=== PATIENT | female | born 1955 | race Caucasian/White ===

== ENCOUNTER → 2018-07-16 | Outpatient (CLI) | payer OTHER ==
--- NOTE | 2018-07-16 12:11 | RAD ---
EXAM DESCRIPTION: Chest,2 Views CLINICAL HISTORY: ENCOUNTER FOR OTHER PROCEDURAL EXAMINATION COMPARISON: None TECHNIQUE: PA/lateral FINDINGS: There is no acute appearing cardiac or pulmonary abnormality. Heart size is normal with normal pulmonary vascularity. No pleural effusion or pneumothorax. Lungs are clear with no consolidating infiltrate. Lateral view shows intact sternum and T-spine. IMPRESSION: No acute process is identified in the chest. Electronically signed by: Dwayne Hernandez MD 07/16/2018 12:10 PM [facility]
== END ==
LOC: LAB.O 10:09 → MERGE 10:09
PROVIDERS: ATTEND Orthopaedic Surgery
DX: Z01.818 Encounter for other preprocedural examination (principal)

== ENCOUNTER 2018-07-22 05:50 | Inpatient (IN) | payer OTHER ==
--- NOTE | 2018-07-21 11:38 | HP ---
CHIEF COMPLAINT: Left hip pain. HISTORY OF PRESENT ILLNESS: Shital is a 63-year-old female with a history of severe pain in the hip that has been getting progressively worse. The predominance of her pain seems to be located in the groin region. She has had this going on and getting progressively worse for at least two years. Because of the severity of her symptoms as well as the endstage nature of her arthritis , she has requested operative intervention. After discussing the risks, benefits and alternatives to operative therapy, the patient has given informed consent. PAST SURGICAL HISTORY: None. MEDICATIONS: 1. Lisinopril. 2. Hydrochlorothiazide. ALLERGIES: NO KNOWN DRUG ALLERGIES. CODE STATUS: Full code. IMMUNIZATIONS: Up to date. FAMILY HISTORY: None pertinent to today's complaint. SOCIAL HISTORY: The patient does drink a small amount of alcohol, does smoke, but does not use any illicit drugs. REVIEW OF SYSTEMS: Negative except as indicated in the History of Present Illness. PHYSICAL EXAMINATION: VITAL SIGNS: Blood pressure 166/99. Pulse 80. Height 5'2". Weight 148 pounds. MENTAL STATUS: The patient is awake, alert, and is able to give a good history and participate in the physical. The patient is oriented to person, place and time. SKIN: Normal tone and turgor. HEENT: Normocephalic, atraumatic. Pupils equal, round and reactive. Mucosal membranes are moist. NECK: Normal range of motion. No thyromegaly, no lymphadenopathy. CHEST: Normal respiratory excursion. CARDIAC: Regular rate and rhythm. No murmurs, rubs or gallops. MUSCULOSKELETAL: Bilateral upper extremities show warm and well perfused extremities without deformity. Sensation is intact. She has no pain with range of motion. She has no crepitus. The right lower extremity does show some pain with range of motion of the hip. She does have about 30 degrees of internal rotation. She has about 100 degrees of forward flexion. External rotation is to about 40 degrees. The left leg shows 0 degrees of internal rotation of the hip and 15 degrees of external rotation. Any hip flexion causes severe pain. The extremity is warm and well perfused. She has no significant pain with range of motion of the knee. IMAGING: X-rays show what appears to be possible avascular necrosis versus endstage arthritis of the hip. ASSESSMENT: 1. Endstage arthritis. PLAN: The plan at this point is for total hip arthroplasty. We have discussed the risks, benefits, and alternatives to that and the patient has given informed consent. #[id number] [facility]
--- NOTE | 2018-07-21 16:48 | RAD ---
EXAM DESCRIPTION: Hip,Left 2 Views CLINICAL HISTORY: 63 years Female, hip pain COMPARISON: None available. FINDINGS: The visualized bones are well-mineralized. Possible avascular necrosis and collapse of the left femoral head with severe osteoarthritis. There is superior migration of the femur in relation to the acetabulum. IMPRESSION: Possible avascular necrosis and collapse of the left femoral head with severe osteoarthritis. There is superior migration of the femur in relation to the acetabulum. Electronically signed by: Jakub Pat MD 07/21/2018 4:46 PM [facility]
--- NOTE | 2018-07-21 16:49 | RAD ---
EXAM DESCRIPTION: Pelvis CLINICAL HISTORY: 63 years Female, hip pain COMPARISON: None. TECHNIQUE: AP radiograph of the pelvis was performed. FINDINGS: The pelvic ring appears grossly intact on this single AP radiograph. No acute fracture or dislocation. Bilateral sacroiliac joints appear normal. Possible avascular necrosis and collapse of the left femoral head with severe osteoarthritis. There is superior migration of the left femur in relation to the acetabulum. Articular surface collapse of the right femoral head is also noted. IMPRESSION: Single AP radiograph of the pelvis demonstrates grossly intact pelvic ring. Possible avascular necrosis and collapse of the left femoral head with severe osteoarthritis. There is superior migration of the left femur in relation to the acetabulum. Articular surface collapse of the right femoral head is also noted. Electronically signed by: Jakub Pat MD 07/21/2018 4:48 PM [facility]
[2018-07-22] MEDS ORDERED: SODIUM CHL 0.9% 100ML MINI-BAG 100 ML IVPB ONE (05:57)
[2018-07-22] MEDS ORDERED: SODIUM CHLORIDE 0.9% 1000ML 1,000 ML ONE (05:58)
[2018-07-22] MEDS ORDERED: TRANEXAMIC ACID 1,000 MG/10 ML VIAL ONE ×2 (05:58→06:14)
[2018-07-22] MEDS ORDERED: VANCOMYCIN HCL INJ 1,000 MG VIAL IVPB ONE ×2 (05:58→16:19)
[2018-07-22] MEDS ORDERED: ceFAZolin SODIUM 1 GM VIAL ONE ×4 (05:58→20:28)
[2018-07-22] MEDS ORDERED: SODIUM CHLORIDE 0.9% 250ML 250 ML ONE ×2 (05:58→16:19)
[2018-07-22] MEDS ORDERED: SODIUM CHLORIDE 0.9% 100ML 100 ML IVPB ONE ×3 (06:15→20:28)
[2018-07-22] MEDS ORDERED: ACETAMINOPHEN IV 1000MG 100 ML ONE (06:40)
[2018-07-22] MEDS ORDERED: ROCURONIUM BROMIDE 10 MG/ML VIAL ONE (06:41)
[2018-07-22] MEDS ORDERED: fentaNYL CITRATE INJ 50 MCG/ML AMP ONE (06:41)
[2018-07-22] MEDS ORDERED: MORPHINE SULF *EPIDURAL* 1 MG/ML VIAL ONE (06:41)
[2018-07-22] MEDS ORDERED: MIDAZOLAM INJ 2 MG/2 ML VIAL ONE (06:41)
[2018-07-22] MEDS: VANCOMYCIN HCL INJ 1,000 MG VIAL IVPB ONE ×2 (08:08→09:24)
[2018-07-22] MEDS: ceFAZolin SODIUM 1 GM VIAL ONE ×2 (08:08→09:24)
[2018-07-22] MEDS: BUPIVACAINE 0.5% 30 ML VIAL INJ ONE ×2 (08:08→09:30)
[2018-07-22] MEDS: BUPIVACAINE LIPOSOME 13.3 MG/ML VIAL INJ ONE ×2 (08:09→09:30)
[2018-07-22] MEDS ORDERED: ELECTROLYTE-A 1,000 ML IVS ONE ×2 (08:18→09:44)
[2018-07-22] MEDS ORDERED: traMADol HCL 50 MG TAB PO PRN (09:59)
[2018-07-22] MEDS ORDERED: TEMAZEPAM 15 MG CAP PO PRN (09:59)
[2018-07-22] MEDS ORDERED: NALOXONE HCL INJ 0.4 MG/ML VIAL IV PRN (09:59)
[2018-07-22] MEDS ORDERED: DEX 5% W/NACL 0.45% 1000ML 1,000 ML IVS PRN (09:59)
[2018-07-22] MEDS ORDERED: BENZOCAINE-MENTH LOZ (CEPACOL) 1 EA LOZ MT PRN (09:59)
[2018-07-22] MEDS ORDERED: ZOLPIDEM TARTRATE 5 MG TAB PO PRN (09:59)
[2018-07-22] MEDS ORDERED: MORPHINE SULFATE INJ 10 MG/ML VIAL IV PRN (09:59)
[2018-07-22] MEDS ORDERED: SODIUM CHLORIDE 0.9% (FLUSH) 10 ML SYG IV PRN (09:59)
[2018-07-22] MEDS ORDERED: MAGNESIUM HYDROXIDE 30 ML UD PO PRN (09:59)
[2018-07-22] MEDS ORDERED: ACETAMINOPHEN 500 MG TAB PO PRN (09:59)
[2018-07-22] MEDS ORDERED: ONDANSETRON INJ 4 MG/2 ML VIAL IV PRN (09:59)
[2018-07-22] MEDS ORDERED: TRANEXAMIC ACID INJ 1,000 MG in SODIUM CHLORIDE 0.9% 100ML 100 ML IVPB ONE (09:59)
[2018-07-22] MEDS ORDERED: MORPHINE SULFATE INJ 10 MG/ML VIAL IM PRN (09:59)
[2018-07-22] MEDS ORDERED: BISACODYL SUPPOSITORY 10 MG PR PRN (09:59)
[2018-07-22] MEDS ORDERED: PROMETHAZINE HCL INJ 12.5 MG in SODIUM CHLORIDE 0.9% 50ML 50 ML IVPB PRN (09:59)
[2018-07-22] MEDS ORDERED: ALUMINUM & MAGNESIUM HYDROXIDE 30 ML UD PO PRN (09:59)
[2018-07-22] MEDS ORDERED: PROMETHAZINE HCL INJ 25 MG in SODIUM CHLORIDE 0.9% 50ML 50 ML IVPB PRN (09:59)
[2018-07-22] MEDS ORDERED: ACETAMINOPHEN 325 MG TAB PO PRN (09:59)
[2018-07-22] MEDS ORDERED: DEXAMETHASONE INJ 10 MG/ML VIAL IV ONE (10:00)
[2018-07-22] MEDS ORDERED: ceFAZolin SODIUM 1 GM VIAL IVPB ONE (10:00)
[2018-07-22] MEDS ORDERED: PROPOFOL 200 MG/20 ML VIAL IV ONE (10:00)
[2018-07-22] MEDS ORDERED: MORPHINE PCA 1 MG/ML 100 ML BAG IVPB SCH (10:00)
[2018-07-22] MEDS ORDERED: METOCLOPRAMIDE HCL INJ 10 MG/2 ML VIAL IV ONE (10:00)
[2018-07-22] MEDS ORDERED: ePHEDrine SULF 50 MG/ML IV ONE (10:00)
[2018-07-22] MEDS ORDERED: raNITIdine HCL INJ 25 MG/ML VIAL IV ONE (10:00)
[2018-07-22] MEDS ORDERED: LIDOCAINE 1% 10 ML VIAL INJ ONE (10:00)
[2018-07-22] MEDS: IV SET AND CAP CHANGE INJ INJ SCH (13:07)
[2018-07-22] MEDS ORDERED: ceFAZolin SODIUM 2 GRAMS PREMI 2 GM in PREMIX BAG 1 BAG IVPB SCH (16:00)
[2018-07-22] MEDS: ceFAZolin SODIUM 2 GM in SODIUM CHLORIDE 0.9% 100ML 100 ML IVPB SCH ×2 (16:29→23:34)
[2018-07-22] MEDS: NICOTINE PATCH 14 MG TD SCH (17:33)
[2018-07-22] MEDS: CELECOXIB 100 MG CAP PO SCH (17:59)
[2018-07-22] MEDS: VANCOMYCIN HCL INJ 1,000 MG in SODIUM CHLORIDE 0.9% 250ML 250 ML IVPB SCH (17:59)
[2018-07-22] MEDS ORDERED: NICOTINE PATCH 14 MG TD ONE (18:16)
--- NOTE | 2018-07-22 19:23 | CONS ---
DATE OF CONSULTATION: 07/22/18 SUPERVISING PHYSICIAN: Fabrizio Espana M.D. CHIEF COMPLAINT: Left total hip arthroplasty. HISTORY OF PRESENT ILLNESS: Ms. Coon is a 63 year-old female patient with a longstanding history of avascular necrosis of the left hip. The pain in her hip has progressively worsened to the point where she was unable to actually work and perform her daily activities of living without significant difficulty. It progressively worsened over the last 2 years and due to these symptoms she requested surgical intervention with Dr. Jaciel Ramirez, orthopedic surgeon, to perform an elective total left hip arthroplasty. The patient has a longstanding history of tobacco abuse as well as alcohol abuse which probably contributed to her avascular necrosis. The patient had no intraoperative complications and was seen in the immediate postoperative state in stable condition. PAST MEDICAL HISTORY: 1. Avascular necrosis of the left hip requiring total left hip arthroplasty as noted above. 2. Hypertension. 3. Chronic tobacco abuse, encouraged to stop smoking. 4. Chronic alcohol abuse. PAST SURGICAL HISTORY: None. CURRENT MEDICATIONS: 1. Lisinopril. 2. Hydrochlorothiazide. ALLERGIES: NO KNOWN DRUG ALLERGIES. FAMILY HISTORY: Mom is secondary to stomach cancer. Dad's unknown. He at an early age before she knew anything about him. Siblings: She has 2 brothers. She has a brother who has cardiovascular disease and has a triple bypass. She has 4 children who are all healthy. SOCIAL HISTORY: The patient is a retired cook. She does have a history of smoking tobacco, 1 to 1-1/2 packs a day currently for well over 30 years. She admits drinking alcohol on a daily basis, typically 4 to 6 shots of Vodka. She denies any recreational drug use. She is and lives in [place]. REVIEW OF SYSTEMS: CONSTITUTIONAL: Negative for any fevers, chills, general malaise, unexplained weight loss. HEENT: Negative for any nasal congestion, ear aches, sore throat, headaches, vision changes. RESPIRATORY: Negative for any shortness of breath, coughing, wheezing. CARDIOVASCULAR: Negative for chest pains, palpitations or syncopal episodes. GASTROINTESTINAL: Negative for any abdominal pains, constipation, diarrhea. GENITOURINARY: Negative for any dysuria, hematuria, polyuria. MUSCULOSKELETAL: As noted in History of Present Illness, positive for left hip pain secondary to avascular necrosis. NEUROLOGIC: Negative for any headaches, seizure activity, ataxia or syncopal episode. HEMATOLOGIC: Denies any easy bruising, unexplained bleeding, or any other problems with hemostasis. PHYSICAL EXAMINATION: VITAL SIGNS: Temperature 97.8, pulse 80, blood pressure 108/52, respirations 15 , satting 98% on nasal cannula at 2 liters at rest. Weight is 73.2 kg. GENERAL: The patient is resting in bed, visiting with family. Appears to be in no acute distress. Her pain is well controlled. She is alert. HEENT: Tympanic membranes are clear bilaterally. Oropharynx is pink and moist without any lesions. NECK: Supple, non-tender. Full range of motion. No jugular venous distention. CHEST: Lungs were clear to auscultation without any rhonchi, wheezing or rales. HEART: Regular rate and rhythm with no appreciable murmurs, gallops, or rubs. ABDOMEN: Soft, non-tender. Positive bowel sounds, but hypoactive. EXTREMITIES: There is no clubbing, cyanosis or edema. Over the left hip is an ABD dressing that is clean and dry. No signs of complications. Distally pulses are strong. No reported neurosensory changes. NEUROLOGIC: She is alert and oriented times three. Cranial nerves II-XII are grossly intact as tested. LABORATORY: Preoperative labs are not available at time of consultation. RADIOLOGY: No additional radiographic studies for review. ASSESSMENT: 1. Avascular necrosis of the left hip, end stage disease process requiring surgical intervention for symptom control with a total left hip arthroplasty performed by Dr. Jaciel Ramirez, orthopedic surgeon. Postoperative day 0. 2. History of hypertension. 3. Chronic tobacco abuse. 4. Chronic alcohol abuse. PLAN: Will continue to follow the patient as she progressed through her rehabilitation efforts. I discussed at length the patient's drinking habits and she feels that she will not have any problems, but I told her that we would closely watch her and if we need to utilize some medications to prevent any complications such s seizures or sever withdrawal symptoms. She notes that her last drink was Saturday. Will put her on a nicotine patch 14 mg initially. Will resume her home medications once those have been updated and verified. Will put her on DVT prophylaxis as per postoperative surgical protocol. Once the patient has met her goals as an inpatient and can transition to outpatient management, she plans to have continued physical therapy rehabilitation at [facility]. Until the patient can transition to outpatient management, will continue to follow and treat as needed. #[id number] MTDD
[2018-07-22] MEDS ORDERED: ENOXAPARIN SODIUM 30 MG/0.3 ML SYG SUBCU ONE (20:28)
[2018-07-22] MEDS: DOCUSATE CALCIUM 240 MG CAP PO SCH (20:54)
[2018-07-22] MEDS: ENOXAPARIN SODIUM 30 MG/0.3 ML SYG SUBCU SCH (23:30)
[2018-07-23] MEDS ORDERED: VANCOMYCIN HCL INJ 1,000 MG VIAL IVPB ONE (04:04)
[2018-07-23] MEDS ORDERED: SODIUM CHLORIDE 0.9% 250ML 250 ML ONE (04:04)
[2018-07-23] MEDS ORDERED: LISINOPRIL 10 MG TAB ONE (05:39)
[2018-07-23] MEDS ORDERED: hydroCHLOROthiazide 12.5 MG CAP ONE (05:39)
[2018-07-23] MEDS: VANCOMYCIN HCL INJ 1,000 MG in SODIUM CHLORIDE 0.9% 250ML 250 ML IVPB SCH (06:27)
[2018-07-23] MEDS: hydroCHLOROthiazide 25 MG TAB PO SCH (06:30)
[2018-07-23] MEDS ORDERED: NON-FORMULARY MEDICATION 1 EA MIS (Lisinopril [Lisinopril] 40 MG) PO SCH (07:00)
[2018-07-23] MEDS ORDERED: SODIUM CHLORIDE 0.9% 100ML 100 ML IVPB ONE (08:04)
[2018-07-23] MEDS ORDERED: ceFAZolin SODIUM 1 GM VIAL ONE (08:04)
--- NOTE | 2018-07-23 08:26 | RAD ---
EXAM: Hip,Left 2 Views (accession [id number]), Pelvis (accession [id number]) CLINICAL HISTORY: Postoperative evaluation COMPARISON STUDY: Pelvis exam July 21, 2018 TECHNICAL: AP pelvis and 2 images of the left hip FINDINGS: The left hip is been replaced. The prosthesis is seated and in alignment. There is no evidence of an interval fracture. The pelvic ring is intact. There are moderate to severe degenerative changes of the right hip which are similar to the comparison study. IMPRESSION: Left hip prosthesis is in alignment. 2. Moderate to severe osteoarthritic changes of the right hip. Electronically signed by: Sree Tineo MD 07/23/2018 8:[address] [facility]
--- NOTE | 2018-07-23 08:26 | RAD ---
EXAM: Hip,Left 2 Views (accession [id number]), Pelvis (accession [id number]) CLINICAL HISTORY: Postoperative evaluation COMPARISON STUDY: Pelvis exam July 21, 2018 TECHNICAL: AP pelvis and 2 images of the left hip FINDINGS: The left hip is been replaced. The prosthesis is seated and in alignment. There is no evidence of an interval fracture. The pelvic ring is intact. There are moderate to severe degenerative changes of the right hip which are similar to the comparison study. IMPRESSION: Left hip prosthesis is in alignment. 2. Moderate to severe osteoarthritic changes of the right hip. Electronically signed by: Sree Tineo MD 07/23/2018 8:24 AM [facility]
[2018-07-23] MEDS: MAGNESIUM OXIDE 400 MG TAB PO SCH (09:02)
[2018-07-23] MEDS: ceFAZolin SODIUM 2 GM in SODIUM CHLORIDE 0.9% 100ML 100 ML IVPB SCH (09:03)
[2018-07-23] MEDS: CELECOXIB 100 MG CAP PO SCH ×2 (09:03→16:09)
[2018-07-23] MEDS: NICOTINE PATCH 14 MG TD SCH (09:04)
[2018-07-23] MEDS: LISINOPRIL 10 MG TAB PO SCH (09:06)
--- NOTE | 2018-07-23 10:52 | PN ---
DATE: 07/22/18 POSTOPERATIVE CHECK SUBJECTIVE: Ms. Coon is doing well and she has no pain. OBJECTIVE: Vital signs stable. Dressing is clean, dry and intact. ASSESSMENT: Status post total hip arthroplasty. PLAN: The plan at this point is to begin partial weightbearing on postoperative day 1. #[id number] MTDD
--- NOTE | 2018-07-23 10:53 | PN ---
DATE: 07/23/18 SUBJECTIVE: Ms. Coon is doing well and her pain is well controlled. OBJECTIVE: Afebrile. Vital signs stable. Dressing is clean, dry and intact. ASSESSMENT: Status post total hip arthroplasty. PLAN: The plan at this point is to begin weightbearing as tolerated on postoperative day 1. #[id number] MTDD
[2018-07-23] MEDS ORDERED: MAGNESIUM SULFATE PREMIX 2GM 2 GM in PREMIX BAG 1 BAG IVPB ONE (10:59)
[2018-07-23] MEDS ORDERED: POTASSIUM CHLORIDE 20 MEQ TAB PO ONE (11:03)
[2018-07-23] MEDS ORDERED: MAGNESIUM SULFATE PREMIX 2GM 50 ML IVPB ONE (11:37)
[2018-07-23] MEDS: ENOXAPARIN SODIUM 30 MG/0.3 ML SYG SUBCU SCH ×2 (11:40→22:01)
[2018-07-23] MEDS: HYDROcodone 5MG/APAP 325MG 1 EA TAB PO PRN (16:09)
--- NOTE | 2018-07-23 18:29 | PN ---
DATE: 07/23/18 SUPERVISING PHYSICIAN: Fabrizio Espana M.D. SUBJECTIVE: The patient reports her pain has been well controlled. She has not had any signs or symptoms of any alcohol withdrawal. She has had no nausea , fevers or any other further complaints. No shortness of breath. OBJECTIVE: VITAL SIGNS: Temperature 98.1, pulse 82, blood pressure 170/70, respirations 20, satting 100% on nasal cannula at 1.5 liters, 99% on room air. I's and O's show a negative balance of 240 with 1560 in, 1800 out. Weight is 73.2 kg. GENERAL: The patient is resting comfortably, just finished her physical therapy. She is not showing any tremors or any other signs of acute withdrawal. She is alert and very pleasant. CHEST: Lungs remain clear to auscultation. HEART: Regular rate and rhythm. ABDOMEN: Soft, non-tender. Positive bowel sounds. EXTREMITIES: Without any clubbing, cyanosis or edema. Distally pulses are strong, capillary refill is brisk. There is over the left hip a bulky dressing in place which is clean and dry with no signs of infection or drainage. LABORATORY: Hemoglobin 9.7, hematocrit 28.4. Chemistries show sodium 132, potassium 3.4, carbon dioxide 25, BUN 10, creatinine 0.65, magnesium 1.6. RADIOLOGY: There are no radiographic studies. ASSESSMENT: 1. Avascular necrosis of the left hip with end stage disease process requiring surgical intervention for symptom control with a total left hip arthroplasty performed by Dr. Jaciel Ramirez, orthopedic surgeon. Postoperative day 1. 2. Mild electrolyte imbalance to include hyponatremia, hypokalemia and hypomagnesemia secondary to thiazide diuretics and previous alcohol abuse requiring some replacement. 3. Chronic tobacco abuse. Continue to encourage to stop smoking. 4. Chronic alcohol abuse. Continue to encourage to stop drinking. PLAN: Will continue with current plan of care with rehabilitation efforts and physical therapy. The patient is not showing any signs or symptoms of withdrawals but is still encouraging her to pay attention real close and not hesitate to let us know if she is having any concerns or any hallucinations or other symptoms. I will go ahead and replace her magnesium and potassium. I do not plan to recheck those in the morning because they are more chronic but I do want to get them as normalized as possible while she is here. Again encouraged her to stop drinking and stop smoking. She is encouraged to continue with bronchial hygiene and pulmonary toiletry with lower extremity exercises to prevent any postoperative complications. Anticipate discharging on Saturday to continue with outpatient management through [facility]. Until she can transition to outpatient management will continue to follow and treat as needed. #[id number] MTDD
[2018-07-23] MEDS: DOCUSATE CALCIUM 240 MG CAP PO SCH (20:08)
[2018-07-24] MEDS: HYDROcodone 5MG/APAP 325MG 1 EA TAB PO PRN ×2 (06:09→19:52)
[2018-07-24] MEDS: hydroCHLOROthiazide 25 MG TAB PO SCH (06:10)
[2018-07-24] MEDS: CYCLOBENZAPRINE HCL 10 MG TAB PO PRN ×2 (06:12→19:52)
[2018-07-24] MEDS: CELECOXIB 100 MG CAP PO SCH ×2 (08:04→17:03)
[2018-07-24] MEDS: LISINOPRIL 10 MG TAB PO SCH (08:07)
[2018-07-24] MEDS: MAGNESIUM OXIDE 400 MG TAB PO SCH (08:08)
[2018-07-24] MEDS: NICOTINE PATCH 14 MG TD SCH (08:08)
[2018-07-24] MEDS: SODIUM CHLORIDE 0.9% (FLUSH) 10 ML SYG IV SCH ×2 (08:08→20:33)
--- NOTE | 2018-07-24 09:01 | PN ---
DATE: 07/24/18 SUBJECTIVE: Shital is having a bit more pain today after she was up with physical therapy yesterday afternoon. OBJECTIVE: Afebrile. Vital signs stable. Wound is clean. There are no signs or symptoms of infection. ASSESSMENT: Status post total hip arthroplasty. PLAN: The plan at this point is to continue with her partal, toe-touch weightbearing. We have encouraged her to utilize her pain medicine and relaxation techniques for assistance with her discomfort. #[id number] [facility]
--- NOTE | 2018-07-24 09:14 | OP ---
DATE OF PROCEDURE: 07/22/18 PREOPERATIVE DIAGNOSIS: 1. Avascular necrosis of the femoral head. POSTOPERATIVE DIAGNOSIS: 1. Avascular necrosis of the femoral head. PROCEDURE: 1. Total hip arthroplasty. SURGEON: Jaciel Ramirez MD. TRAFFIC DIVISION COMMANDING OFFICER: Elton Agrawal CST, SA-C. ANESTHESIA: General anesthesia. COMPLICATIONS: None. FINDINGS: Advanced avascular necrosis of the hip. INDICATION: Ms. Coon has a history of alcohol abuse and worsening pain over the course of the past two years. She has had difficulty from a financial standpoint obtaining the necessary funds for total hip arthroplasty and therefore has had that pain going on for so long. She has fortunately been approved to undergo hip arthroplasty. The pain she is having has been refractory to conservative measures. Because of that, she has been counseled as to the risks, benefits and alternatives to operative therapy and informed consent was obtained. PROCEDURE: The patient was brought to the Operating Room and placed in supine position. General anesthesia was induced and the patient was turned into the lateral decubitus position. The leg and hemipelvis were then sterilely prepped and draped. An incision was made centered over the greater trochanter. Dissection was carried down to the iliotibial band. The iliotibial band was split along the length of its fibers. The anterior one-third of the abductor musculature was then elevated and a capsulotomy was performed. The hip was dislocated and primary femoral neck cut was made. Following primary femoral neck cut, the acetabulum was identified. It was noted that there was exuberant synovitis throughout. All of the abnormal soft tissue was excised. The labrum was removed. The acetabulum was then reamed to accommodate a size 48 cup. Bleeding bony bed was achieved. Attempts were made to harvest bone graft from the remaining femoral head, however, there was no healthy cancellous bone to be removed. As such, cadaveric allograft cancellous bone was placed medially. The cup was impacted and because of the severe osteopenic nature of the bone, two screws were used to augment the fixation. A liner was then placed and attention was then focused on the femur. Following broaching of the canal, the femoral canal was reamed and broached sequentially to a size 9 femoral stem. A trial head was placed and the hip was reduced. The leg lengths were checked to ensure appropriate gnosticism of length relative to the contralateral side. The hip was then dislocated and the wound was very thoroughly irrigated. Following irrigation, the abductor musculature was reapproximated in an anatomic position. The iliotibial band was closed along its entirety and the skin was closed with a combination of running and interrupted subcuticular stitches. Sterile dressings were placed. The patient was transitioned into the supine position and awoken from anesthesia. The patient was taken to the Recovery Room in stable condition. POSTOPERATIVE PLAN: The patient will be toe-touch weightbearing initially on postoperative day 1. COMPONENTS: Srinath [employer]ur-[employer] stem size 9, Tritanium cup size 48 and 32 mm head. #[id number] [facility]TDD
[2018-07-24] MEDS: ENOXAPARIN SODIUM 30 MG/0.3 ML SYG SUBCU SCH ×2 (11:43→22:37)
[2018-07-24] MEDS ORDERED: HYDROcodone 7.5MG/APAP 325MG 1 EA TAB PO ONE (14:09)
--- NOTE | 2018-07-24 17:46 | PN ---
DATE: 07/24/18 SUPERVISING PHYSICIAN: Fabrizio Espana M.D. SUBJECTIVE: The patient is sitting up in her chair. She has just had physical therapy. Her daughters are at bedside. She is in quite a bit of pain and we discussed pain management while she is in the hospital. She also did not sleep very well so I will adjust her sleeping medications, otherwise she felt like her physical therapy went well in spite of her increased pain. OBJECTIVE: VITAL SIGNS: She is afebrile, heart rate 93, blood pressure 137/85, respiratory rate 18, O2 sat 97% on room air. RESPIRATORY: Essentially clear to auscultation bilaterally. CARDIAC: Regular rate and rhythm. GASTROINTESTINAL: Abdomen is soft, nondistended, non-tender. Bowel sounds are positive. EXTREMITIES: She has a dressing to her left hip that is dry and intact. Bilateral pedal pulses are palpable at +2 to 3. NEUROLOGIC: She is awake, alert and oriented times three. LABORATORY: There are labs and films to report at this time. ASSESSMENT: 1. Avascular necrosis of the left hip with end stage disease process requiring surgical intervention for symptom control with a total left hip arthroplasty performed by Dr. Jaciel Ramirez, orthopedic surgeon. Postoperative day #2. 2. Mild electrolyte imbalance that has required replacement and is now resolved. 3. Chronic tobacco abuse. Continue to encourage to stop smoking. 4. Continued alcohol abuse. Continue to encourage to stop drinking. PLAN: We will continue present care. I will draw labs in the morning to check her electrolytes to make sure they are stable. She plans on [facility] outpatient rehabilitation after discharge. Again I have encouraged her to stop smoking. I have ordered her a sleeping pill that will be repeated if she does not sleep well. I have given her a 1 time dose of 7.5 Casar to get her pain under control as she had not had a pain pill in about 8 hours. We will continue to monitor closely and follow as needed. Dr. Espana is the collaborating physician available for consultation. #[id number] [facility]
[2018-07-24] MEDS: DOCUSATE CALCIUM 240 MG CAP PO SCH (20:32)
[2018-07-25] MEDS: hydroCHLOROthiazide 25 MG TAB PO SCH (06:41)
[2018-07-25] MEDS: CELECOXIB 100 MG CAP PO SCH ×2 (08:01→16:57)
[2018-07-25] MEDS: NICOTINE PATCH 14 MG TD SCH (08:19)
[2018-07-25] MEDS: MAGNESIUM OXIDE 400 MG TAB PO SCH (08:20)
[2018-07-25] MEDS: HYDROcodone 7.5MG/APAP 325MG 1 EA TAB PO PRN ×3 (08:20→20:17)
[2018-07-25] MEDS: SODIUM CHLORIDE 0.9% (FLUSH) 10 ML SYG IV SCH ×2 (08:21→20:18)
[2018-07-25] MEDS: LISINOPRIL 10 MG TAB PO SCH (08:21)
[2018-07-25] MEDS: IV SET AND CAP CHANGE INJ INJ SCH (11:01)
[2018-07-25] MEDS: ENOXAPARIN SODIUM 30 MG/0.3 ML SYG SUBCU SCH ×2 (11:03→21:27)
[2018-07-25] MEDS ORDERED: MAGNESIUM SULFATE PREMIX 2GM 2 GM in PREMIX BAG 1 BAG IVPB ONE (11:50)
[2018-07-25] MEDS ORDERED: MAGNESIUM SULFATE PREMIX 2GM 50 ML IVPB ONE (12:16)
--- NOTE | 2018-07-25 13:18 | PN ---
SUPERVISING PHYSICIAN: Fabrizio Espana M.D. DATE: 07/25/18 SUBJECTIVE: The patient is lying in bed. She feels much better today today than yesterday. We discussed her discharge plan and that she would be at [place] outpatient physical therapy. Otherwise, she has no complaints of shortness of breath, chest pain, nausea, vomiting, diarrhea. OBJECTIVE: VITAL SIGNS: T-max 24 hours 100.6. Heart rate 93. Blood pressure 109/73. Respiratory rate 18. O2 saturation 96%. RESPIRATORY: Essentially clear to auscultation bilaterally. CARDIAC: Regular rate and rhythm. GASTROINTESTINAL: Abdomen is soft, nondistended, nontender. Bowel sounds are positive. EXTREMITIES: She has a dressing to her left lateral hip that is dry and intact. Bilateral pedal pulses are palpable at +2. NEUROLOGIC: She is awake, alert and oriented times three. LABORATORY: Sodium slightly low at 132 with potassium 3.7, chloride 99. Carbon dioxide 25, magnesium 1.5. All other labs and films have been reviewed through the EMR. ASSESSMENT: 1. Avascular necrosis of the left hip with endstage disease process requiring surgical intervention for symptom control with a total left hip arthroplasty performed by Dr. Jaciel Ramirez, orthopedic surgeon. Postoperative day #3. 2. Mild electrolyte imbalance that has required replacement. She has hypomagnesemia today and she will get replacement. 3. Chronic tobacco abuse, continue to encourage to stop smoking. 4. Continued alcohol abuse, continue to encourage to stop drinking. PLAN: We will continue present care. Orthopedic issues will be per Dr. Ramirez. Physical therapy will continue with her strengthening and conditioning. I have encouraged good pulmonary hygiene. We will watch her vital signs including her temperature. The plan is to be discharged to [place] outpatient physical therapy department tomorrow. Her appropriate equipment has been ordered. I will also give her some magnesium replacement today and will check her labs in the morning. Otherwise, we will continue to monitor the patient closely and follow as needed. #[id number] [facility]
[2018-07-25] MEDS: DOCUSATE CALCIUM 240 MG CAP PO SCH (20:49)
[2018-07-25] MEDS ORDERED: MAGNESIUM HYDROXIDE 30 ML UD PO ONE (21:00)
[2018-07-25] MEDS ORDERED: BISACODYL SUPPOSITORY 10 MG PR ONE (21:00)
[2018-07-26] MEDS: CELECOXIB 100 MG CAP PO SCH (07:38)
[2018-07-26] MEDS: hydroCHLOROthiazide 25 MG TAB PO SCH (07:38)
[2018-07-26] MEDS: HYDROcodone 7.5MG/APAP 325MG 1 EA TAB PO PRN (08:08)
[2018-07-26] MEDS: MAGNESIUM OXIDE 400 MG TAB PO SCH (08:09)
[2018-07-26] MEDS: SODIUM CHLORIDE 0.9% (FLUSH) 10 ML SYG IV SCH (08:09)
[2018-07-26] MEDS: LISINOPRIL 10 MG TAB PO SCH (08:09)
[2018-07-26] MEDS: NICOTINE PATCH 14 MG TD SCH (08:09)
[2018-07-26] MEDS: ENOXAPARIN SODIUM 30 MG/0.3 ML SYG SUBCU SCH (10:24)
[2018-07-26 10:27] VITALS: BP 104/69; TEMP 98.1; O2SAT 97
[2018-07-26] MEDS ORDERED: MAGNESIUM OXIDE 400 MG TAB PO ONE (10:30)
--- NOTE | 2018-07-26 16:01 | DS ---
[facility] PHYSICIAN: Fabrizio Espana M.D. DISCHARGE DIAGNOSIS: 1. Avascular necrosis of the left hip with endstage disease process requiring surgical intervention for symptom control with a total left hip arthroplasty performed by Dr. Jaciel Ramirez, orthopedic surgeon. Postoperative day #4. 2. Mild electrolyte imbalance that has required replacement. It has improved. 3. Chronic tobacco abuse, continue to encourage to stop smoking. 4. Continued alcohol abuse, continue to encourage to stop drinking. HISTORY OF PRESENT ILLNESS: This is a 63 year-old female patient who has a longstanding history of avascular necrosis of the left hip. The pain in her hip had progressively worsened to the point that she had difficulty performing her daily activities of living. She requested surgical intervention per Dr. Jaciel Ramirez, orthopedic surgeon, to perform an elective left total hip arthroplasty. The patient also has a longstanding history of alcohol and tobacco abuse. There were no intraoperative complications and she was seen postoperatively in consultation postoperatively. HOSPITAL COURSE: Her first postoperative day she did quite well with her physical therapy for strengthening and conditioning. She did have a fairly significant amount of pain that required extra pain medication as well as adjustment on her pain medications. She also had mild hyponatremia as well as mild hypokalemia. Sodium get as low as 132 and her potassium was 3.4. Magnesium was also low at 1.6 which required replacement. Today, her sodium is 134, potassium is 4.1 but her magnesium is 1.7. She is getting an extra dose of oral magnesium. She met her goals for physical therapy for strengthening and conditioning and today she will be discharged home in stable condition. DISCHARGE PLAN: The patient will be discharged home in stable condition. She is to resume her previous home medications plus her pain medications prescribed by Dr. Ramirez as well as her Flexeril and Xarelto for 31 additional days for a total of 35 days of anticoagulation. I have cautioned her on the use of NSAIDs while on Xarelto and to watch for any excessive bleeding problems. She has a followup appointment with Dr. Ramirez on 08/08/18 at 9:30 AM. She will be doing her physical therapy as an outpatient with the [facility]. She is to followup with Dr. Ramirez or return to the hospital for any further problems or complications. DISCHARGE MEDICATIONS: 1. Lisinopril. 2. Hydrochlorothiazide. 3. Acetaminophen with codeine. 4. Cyclobenzaprine. 5. Hydrocodone. 6. Xarelto. #[id number] [facility]
== END 2018-07-26 11:18 | disposition home or self-care (01) | DRG 470 ==
LOC: AMB 05:50 → MERGE 07:00 → MS 11:40
PROVIDERS: ADMIT Orthopaedic Surgery; ATTEND Orthopaedic Surgery
PROC: 0SRB0JZ Replacement of Left Hip Joint with Synthetic Substitute, Open Approach (ICD-10-PCS; principal; 2018-07-22 07:11)
DX: M87.852 Other osteonecrosis, left femur (principal); E87.1 Hypo-osmolality and hyponatremia; F17.210 Nicotine dependence, cigarettes, uncomplicated; F10.10 Alcohol abuse, uncomplicated; I10 Essential (primary) hypertension; E87.6 Hypokalemia; M85.88 Other specified disorders of bone density and structure, other site